=== PATIENT | female | born 1980 | race Caucasian/White ===

== ENCOUNTER 2019-02-24 17:45 | Emergency (ER) | payer OTHER ==
[~2019-02-24] VITALS: Ht 160 cm; Wt 68.0 kg
[2019-02-24] MEDS ORDERED: MUSCLE RELAXER (18:05)
[2019-02-24] MEDS ORDERED: IBUP800 PO (18:06)
[2019-02-24] MEDS ORDERED: VALA500 PO (19:15)
[2019-02-24] MEDS ORDERED: HYDR1TAB94 PO (19:15)
== END 2019-02-24 19:40 | disposition home or self-care (01) ==
LOC: ER 17:45
DX: B02.9 Zoster without complications (principal); Z79.899 Other long term (current) drug therapy
CPT/HCPCS: 99283; A9270

== ENCOUNTER 2022-05-23 03:31 | Emergency (ER) | payer OTHER ==
[~2022-05-23] VITALS: Ht 160 cm; Wt 68.0 kg
[~2022-05-23 03:31] MED LIST: HYDR1TAB94 PO; IBUP800 PO; MUSCLE RELAXER; VALA500 PO
== END 2022-05-23 05:07 | disposition home or self-care (01) ==
LOC: ER 03:31
DX: R19.7 Diarrhea, unspecified (principal); R11.0 Nausea
CPT/HCPCS: A9270